=== PATIENT | male | born 1955 | race Caucasian/White ===

== ENCOUNTER 2023-03-24 12:55 | Outpatient (CLI) | payer MEDICARE | END 2023-03-24 12:56 | disposition home or self-care (01) | LOC: CSHMRI 12:55 | PROVIDERS: ATTEND Urology | DX: N40.2 Nodular prostate without lower urinary tract symptoms (principal); R93.89 Abnormal findings on diagnostic imaging of other specified body structures; D49.59 Neoplasm of unspecified behavior of other genitourinary organ; C79.51 Secondary malignant neoplasm of bone; C77.9 Secondary and unspecified malignant neoplasm of lymph node, unspecified | CPT/HCPCS: 72197; 82565 ==